=== PATIENT | male | born 1945 | race Caucasian/White ===

== ENCOUNTER → 2018-01-01 | Outpatient (CLI) | payer MEDICARE, OTHER ==
--- NOTE | 2018-01-01 09:12 | CT ---
EXAMINATION TYPE: CT sinus wo con DATE OF EXAM: 01/01/2018 COMPARISON: NONE HISTORY: Chronic sinusitis CT DLP: 602 mGycm. Automated Exposure Control for Dose Reduction was Utilized. TECHNIQUE: CT scan of the sinuses is performed without contrast, axial images are obtained, coronal r eformatted images are also reviewed. FINDINGS: There is minimal mucosal thickening within the ethmoid sinuses. The frontal sinuses, maxill carmela sinuses, sphenoid sinuses, and mastoid air cells are well aerated. There is no middle ear cavity fluid identified. External auditory canals are patent. No mason bullosa are seen. The nasal septum r emains overall midline. Maxillary spine and nasal bone are intact. The ostiomeatal complexes are wide ly patent. There are small nonocclusive Eli cells measuring 2 to 3 mm on the right and 2 on the le ft measuring 8 mm and 2 mm. No mucosal hypertrophy of the nasal turbinates is seen. Extraocular muscles and orbits are symmetric. Lenses are surgically absent. No focal soft tissue swel ling is seen. Visualized parotid glands demonstrate mild atrophy that are symmetric. Osseous structur es are grossly intact other than a chronic fracture deformity of the left lamina papyracea. Visualize d portions of the intracranial parenchyma are limited given technique but do demonstrate symmetric ag e-related volume loss. IMPRESSION: 1. Scant mucosal thickening within the ethmoid sinuses. Remaining paranasal sinuses are clear. Ostiom eatal complexes are patent. 2. Small nonocclusive bilateral Eli cells. 3. No mason bullosa, no nasal septal deviation, no mucosal hypertrophy of the nasal turbinates, no m astoid air cell opacification, and no middle ear cavity fluid.
== END ==
LOC: RADCTMAIN 08:37
PROVIDERS: ATTEND Otolaryngology
DX: J32.2 Chronic ethmoidal sinusitis (principal)
CPT/HCPCS: 70486

== ENCOUNTER → 2020-05-03 | Outpatient (CLI) | payer MEDICARE, OTHER ==
--- NOTE | 2020-05-03 11:44 | FL ---
EXAMINATION TYPE: FL sniff test without CXR DATE OF EXAM: 05/03/2020 Comparison: 04/19/2020 radiograph Clinical History: 74-year-old male R06.09 DYSPNEA TECHNIQUE: Real-time fluoroscopy along the anterior lower chest during quiet breathing, deep breathin g, and sniffing maneuver. Total fluoroscopy time: 1 minute 21 seconds. Total images: None. Real-time fluoroscopy was utilized. Findings: There is some exam limitations as the patient had difficulty performing the sniffing maneuver. The pa tiejohnathan reports that one nasal passage collapses during sniffing. Slight asymmetric elevation of the ri ght hemidiaphragm is again noted. However, there is overall symmetric excursion of the hemidiaphragms from side to side. The patient's limited sniffing maneuver shows no clear paradoxical motion. Impression: The patient's limited sniffing maneuver (the patient reports a collapsing nasal passage upon sniffing )shows no convincing evidence for diaphragmatic paralysis.
--- NOTE | 2020-05-03 12:41 | ECHOF ---
Referral Reason:R06.09 dyspnea on exertion MEASUREMENTS -------- HEIGHT: 185.4 cm WEIGHT: 139.7 kg BP: RVIDd: 3.7 cm (< 3.3) IVSd: 1.8 cm (0.6 - 1.1) LVIDd: 4.1 cm (3.9 - 5.3) LVPWd: 1.7 cm (0.6 - 1.1) IVSs: 2.0 cm LVIDs: 3.1 cm LVPWs: 1.7 cm LAESV Index (A-L): 23.09 ml/m Ao Diam: 3.7 cm (2.0 - 3.7) AV Cusp: 2.4 cm (1.5 - 2.6) MV EXCURSION: 19.135 mm (> 18.000) MV EF SLOPE: 123 mm/s (70 - 150) EPSS: 0.6 cm MV E Jaime: 0.66 m/s MV A Jaime: 1.08 m/s MV E/A Ratio: 0.61 AR PHT: 623 ms RAP: 5.00 mmHg RVSP: 16.47 mmHg FINDINGS -------- Sinus rhythm. This was a technically adequate study. The left ventricular size is normal. There is moderate concentric left ventricular hypertrophy. O verall left ventricular systolic function is normal with, an EF between 55 - 60 %. The right ventricle is mildly enlarged. Normal LA size by volume 22+/-6 ml/m2. The right atrial size is normal. Interatrial and interventricular septum intact. There is mild aortic valve sclerosis. Trace to mild aortic regurgitation. There is no evidence of aortic stenosis. Mild mitral annular calcification present. Mild mitral regurgitation is present. Mild tricuspid regurgitation present. There is no evidence of pulmonary hypertension. The right v entricular systolic pressure, as measured by Doppler, is 16.47mmHg. There is no pulmonic regurgitation present. The aortic root size is normal. IVC Not well visulized. There is no pericardial effusion. CONCLUSIONS -------- 1. There is moderate concentric left ventricular hypertrophy. 2. Overall left ventricular systolic function is normal with, an EF between 55 - 60 %. 3. The right ventricle is mildly enlarged. 4. Normal LA size by volume 22+/-6 ml/m2. 5. There is mild aortic valve sclerosis. 6. Trace to mild aortic regurgitation. 7. Mild mitral annular calcification present. 8. Mild mitral regurgitation is present. 9. Mild tricuspid regurgitation present. FLORAL DESIGNER: Guerline Alonso RDCS
== END | disposition home or self-care (01) ==
LOC: RADUSWWP 09:54
PROVIDERS: ATTEND Internal Medicine
DX: I08.3 Combined rheumatic disorders of mitral, aortic and tricuspid valves (principal); R06.09 Other forms of dyspnea
CPT/HCPCS: 76000; 93306

== ENCOUNTER 2021-09-23 10:10 | Day surgery (SDC) | payer MEDICARE, OTHER ==
[2021-09-22 12:06] VITALS: BMI 38.0
[2021-09-23] MEDS ORDERED: LACTATED RINGERS 1,000 ML IV SCH (10:20)
[2021-09-23 10:36] VITALS: RESP 20; TEMP 97.5
[2021-09-23] MEDS ORDERED: PROPOFOL 10 MG/ML 20 ML VIAL IV ONE (10:57)
[2021-09-23] MEDS ORDERED: LIDOCAINE 1% INJ 10MG/ML (20 ML MDV) ONE (10:57)
--- NOTE | 2021-09-23 11:10 | P.PCN ---
Date of Procedure: 09/23/21 Procedure(s) Performed: BRIEF HISTORY: Patient is a 76-year-old, pleasant, male scheduled for an upper endoscopy as a part of evaluation of epigastric pain, early satiety for the last several years duration. His symptoms lately have been progressively getting worse. He has history of gastric lap band surgery approximately 12 years ago and because of the persistent symptoms this was removed about 4 years ago. He lost 30 pounds in the last 6 months.. PROCEDURE PERFORMED: Esophagogastroduodenoscopy with biopsy PREOPERATIVE DIAGNOSIS: Persistent epigastric pain and early satiety. IV sedation per anesthesia. PROCEDURE: After informed consent was obtained, the patient was brought into the endoscopy unit. IV sedation was administered by Anesthesia under continuous monitoring. Initially the Olympus GIF-140 video endoscope was inserted into the mouth. Esophagus intubated without any difficulty. It was gradually advanced into the stomach and duodenum and carefully examined. The bulb and the second part of the duodenum appeared normal. Abscesses were done from the duodenum to rule out celiac disease. The scope at this time was withdrawn to the stomach, adequately insufflated with air, and upon careful examination, mucosa of the antrum, body, had diffuse gastritis and biopsies were done from this area. The cardia and the fundus appeared normal. The scope was then withdrawn into the esophagus. The GE junction was located at 42 cm from the incisors. In the distal esophagus a there was circumferential erythema the GE junction consistent with LA grade a reflux esophagitis. There were no erosions or ulcerations seen. Rest of esophagus appeared normal and the patient tolerated the procedure well. IMPRESSION: 1. Mild diffuse gastritis. 2. LA grade a reflux esophagitis. RECOMMENDATIONS: The findings of this examination were discussed with the patient as well as his family. He was advised to follow with the biopsy results. In the meantime continue Prilosec [address] of abdomen and pelvis results. He will be seen in office in 2 weeks..
[2021-09-23 11:26] VITALS: BP 132/81; PULSE 69
== END 2021-09-23 11:40 | disposition home or self-care (01) ==
LOC: ORWHC2ENDO 10:10
PROVIDERS: ATTEND Internal Medicine Gastroenterology
DX: K29.60 Other gastritis without bleeding (principal); K21.00 Gastro-esophageal reflux disease with esophagitis, without bleeding; I10 Essential (primary) hypertension; E07.9 Disorder of thyroid, unspecified; E66.01 Morbid (severe) obesity due to excess calories
CPT/HCPCS: 43239; 88305; J2001; J2704

== ENCOUNTER → 2021-09-28 | Outpatient (CLI) | payer MEDICARE, OTHER ==
--- NOTE | 2021-09-28 21:40 | CT ---
EXAMINATION TYPE: CT abdomen pelvis w con DATE OF EXAM: 09/28/2021 COMPARISON: None available HISTORY: Abnormal weight loss CT DLP: 3200.7 mGycm Automated exposure control for dose reduction was used. TECHNIQUE: Helical acquisition of images was performed from the lung bases through the pelvis. CONTRAST: Performed with Oral Contrast and with IV Contrast, patient injected with 100 mL of Isovue 300. FINDINGS: LUNG BASES: 11 mm right lung base calcified granuloma. Coronary arterial atherosclerotic calcificatio ns. LIVER/GB: No significant abnormality is appreciated. PANCREAS: Severe fatty infiltration of the pancreas. SPLEEN: No significant abnormality is seen. ADRENALS: No significant abnormality is seen. KIDNEYS: No significant abnormality is seen. FREE AIR: No free air is visualized. RETROPERITONEAL ADENOPATHY: None visualized REPRODUCTIVE ORGANS: Slightly enlarged prostate, please correlate with PSA level. URINARY BLADDER: No significant abnormality is seen. PELVIC ADENOPATHY: None visualized. OSSEOUS STRUCTURES: Degenerative changes of the lower thoracic and lower lumbar spine with facet ost eoarthropathy. Degenerative changes of the left hip joint. No aggressive bone lesion. BOWEL: Surgical clips are seen at the gastroesophageal junction. Unremarkable stomach otherwise. Sec ond part of the duodenum diverticulum measuring up to 3.9 cm. Unremarkable remainder of the duodenum and small bowel. Scattered uncomplicated colonic diverticulosis. No gross colonic mass however a smal l lesion cannot be excluded. OTHER: Scattered arterial atherosclerotic calcifications. Sizable ascites. IMPRESSION: No definite suspicious lesion or acute abnormality seen in the abdomen or the pelvis. Incidental find ings as described above.
== END | disposition home or self-care (01) ==
LOC: RADCTMAIN 14:59
PROVIDERS: ATTEND Internal Medicine Gastroenterology
DX: R63.4 Abnormal weight loss (principal)
CPT/HCPCS: 82565; 84520; 74177; 36415; Q9967

== ENCOUNTER 2024-01-14 05:23 | Inpatient (IN) | payer MEDICARE, OTHER ==
--- NOTE | 2024-01-14 05:35 | ED ---
Weakness HPI - General Chief complaint: Weakness Stated complaint: Weakness Time Seen by Provider: 01/14/24 05:32 Source: EMS, RN notes reviewed, old records reviewed Mode of arrival: EMS Limitations: no limitations - History of Present Illness Initial comments: This is an 78-year-old male to the ER for evaluation of significant and persistent nausea vomiting and diarrhea. Patient feels lightheaded dizzy and weak, fatigued with low heart rate concern for thyroid issue. MD Complaint: generalized weakness -: days(s) Location: generalized Severity: moderate Severity scale (1-10): 7 Improves with: none Worsens with: none Context: recent illness, history of similar Associated Symptoms: denies other symptoms - Related Data Home Medications Medication Instructions Recorded Confirmed Cholecalciferol [Vitamin D3 (125 125 mcg PO DAILY 09/22/21 01/14/24 Mcg = 5000 Iu)] Losartan Potassium 50 mg PO HS 09/22/21 01/14/24 Terazosin HCl 5 mg PO HS 09/22/21 01/14/24 Aspirin EC [Ecotrin Low Dose] 81 mg PO DAILY 01/14/24 01/14/24 Cyclobenzaprine [Flexeril] 10 mg PO BID PRN 01/14/24 01/14/24 Multivitamins, Thera [Multivitamin 1 tab PO DAILY 01/14/24 01/14/24 (formulary)] Omeprazole 20 mg PO DAILY 01/14/24 01/14/24 Thyroid,Pork [Water Well Driller Thyroid] 180 mg PO MOWEFR 01/14/24 01/14/24 Thyroid,Pork [Water Well Driller Thyroid] 270 mg PO SUTUTHSA 01/14/24 01/14/24 hydroCHLOROthiazide [Hydrodiuril] 25 mg PO DAILY 01/14/24 01/14/24 Previous Rx's Medication Instructions Recorded metroNIDAZOLE 250 mg PO TID #21 tablet 01/15/24 polyethylene glycoL 3350 [Miralax] 17 gm PO AC-LUNCH #527 gm 01/15/24 Allergies Allergy/AdvReac Type Severity Reaction Status Date / Time No Known Allergies Allergy Verified 01/14/24 07:34 Review of Systems ROS Statement: Those systems with pertinent positive or pertinent negative responses have been documented in the HPI. ROS Other: All systems not noted in ROS Statement are negative. Past Medical History Past Medical History: Hearing Disorder / Deafness, Hypertension, Osteoarthritis (OA), Thyroid Disorder Additional Past Medical History / Comment(s): unexplained 30 lb approx wt loss over last 6 mos History of Any Multi-Drug Resistant Organisms: None Reported Past Surgical History: Bariatric Surgery Additional Past Surgical History / Comment(s): LAP BAND SURGERY, LAP BAND REMOVED, abilio cataracts,rt meniscus Past Anesthesia/Blood Transfusion Reactions: No Reported Reaction Past Psychological History: No Psychological Hx Reported Smoking Status: Former smoker Past Alcohol Use History: None Reported Past Drug Use History: None Reported - Past Family History Mother Family Medical History: Cancer Father Family Medical History: Cancer General Exam General appearance: alert, in no apparent distress Head exam: Present: atraumatic, normocephalic, normal inspection Eye exam: Present: normal appearance, PERRL, EOMI. Absent: scleral icterus, conjunctival injection, periorbital swelling ENT exam: Present: normal exam, mucous membranes moist Neck exam: Present: normal inspection. Absent: tenderness, meningismus, lympha denopathy Respiratory exam: Present: normal lung sounds bilaterally. Absent: respiratory distress, wheezes, rales, rhonchi, stridor Cardiovascular Exam: Present: regular rate, normal rhythm, normal heart sounds. Absent: systolic murmur, diastolic murmur, rubs, gallop, clicks GI/Abdominal exam: Present: soft, normal bowel sounds. Absent: distended, tenderness, guarding, rebound, rigid Extremities exam: Present: normal inspection, full ROM, normal capillary refill. Absent: tenderness, pedal edema, joint swelling, calf tenderness Back exam: Present: normal inspection Neurological exam: Present: alert, oriented X3, CN II-XII intact Psychiatric exam: Present: normal affect, normal mood Skin exam: Present: warm, dry, intact, normal color. Absent: rash Course Vital Signs 01/14/24 01/14/24 01/14/24 05:24 06:15 10:45 Temperature 97.5 F L 97.9 F Pulse Rate 58 L 48 L 78 Respiratory 17 16 17 Rate Blood Pressure 145/77 147/58 158/69 O2 Sat by Pulse 96 98 95 Oximetry 01/14/24 01/14/24 01/14/24 12:20 17:00 18:51 Temperature 97.9 F 98.6 F 98.1 F Pulse Rate 80 67 74 Respiratory 18 17 Rate Blood Pressure 131/55 163/75 160/64 O2 Sat by Pulse 95 96 Oximetry 01/14/24 01/14/24 01/15/24 19:30 21:00 00:00 Temperature 98.1 F 98.2 F Pulse Rate 74 66 62 Respiratory 18 20 18 Rate Blood Pressure 160/69 162/66 154/68 O2 Sat by Pulse 96 95 97 Oximetry 01/15/24 01/15/24 01/15/24 02:00 03:00 05:00 Temperature 98.3 F Pulse Rate 63 85 66 Respiratory 18 18 18 Rate Blood Pressure 152/63 147/69 172/71 O2 Sat by Pulse 97 96 96 Oximetry 01/15/24 01/15/24 01/15/24 06:00 08:23 08:53 Temperature 98.8 F Pulse Rate 75 64 Respiratory 18 18 Rate Blood Pressure 156/69 O2 Sat by Pulse 97 95 96 Oximetry 01/15/24 08:55 Temperature Pulse Rate 65 Respiratory Rate Blood Pressure 164/80 O2 Sat by Pulse 96 Oximetry - Reevaluation(s) Reevaluation #1: 01/14/24 06:23 Medical records reviewed Reevaluation #2: 01/14/24 06:28 Patient has no change in heart rate or symptoms here in the ER Reevaluation #3: 01/14/24 06:28 Patient informed of results and questions answered Reevaluation #4: Was pt. sent in by a medical professional or institution (, PA, [facility], urgent care, hospital, or penitentiary...) When possible be specific @ -no Did you speak to anyone other than the patient for history (EMS, parent, family, police, friend...)? What history was obtained from this source @ -no Did you review nursing and triage notes (agree or disagree)? Why? @ -agree Are old charts reviewed (outside hosp., previous admission, EMS record, old EKG, old radiological studies, urgent care reports/EKG's, penitentiary records)? Report findings @ -yes Differential Diagnosis (chest pain, altered mental status, abdominal pain women, abdominal pain men, vaginal bleeding, weakness, fever, dyspnea, syncope, headache, dizziness, GI bleed, back pain, seizure, CVA, palpatations, mental health, musculoskeletal)? @ -prior EKG interpreted by me (3pts min.). @ -yes X-rays interpreted by me (1pt min.). @ -no CT interpreted by me (1pt min.). @ -no U/S interpreted by me (1pt. min.). @ -no What testing was considered but not performed or refused? (CT, X-rays, U/S, labs)? Why? @ -none What meds were considered but not given or refused? Why? @ -none Did you discuss the management of the patient with other professionals (professionals i.e. , PA, [employer], lab, RT, psych nurse, social media community manager, adjunct psychology faculty member, teacher, administrative officer, piano case and bench assembler)? Give summary @ -no Was smoking cessation discussed for >3mins.? @ -no Was critical care preformed (if so, how long)? @ -yes31 Were there social determinants of health that impacted care today? How? (Homelessness, low income, unemployed, alcoholism, drug addiction, transportation, low edu. Level, literacy, decrease access to med. care, longterm, rehab)? @ -none Was there de-escalation of care discussed even if they declined (Discuss DNR or withdrawal of care, Hospice)? DNR status @ -no What co-morbidities impacted this encounter? (DM, HTN, Smoking, COPD, CAD, Cancer, CVA, ARF, Chemo, Hep., AIDS, mental health diagnosis, sleep apnea, morbid obesity)? @ -none Was patient admitted / discharged? Hospital course, mention meds given and route, prescriptions, significant lab abnormalities, going to OR and other pertinent info. @ - 78 male to the ER for evaluation of nausea vomiting diarrhea bradycardia. Patient admitted for symptomatic bradycardia here in the emergency department Admitted Undiagnosed new problem with uncertain prognosis? @ -no Drug Therapy requiring intensive monitoring for toxicity (Heparin, Nitro, Insulin, Cardizem)? @ -no Were any procedures done? @ -no Diagnosis/symptom? @ -Symptomatic bradycardia Acute, or Chronic, or Acute on Chronic? @ -Acute Uncomplicated (without systemic symptoms) or Complicated (systemic symptoms)? @ -Complicated Side effects of treatment? @ -no Exacerbation, Progression, or Severe Exacerbation? @ -exacerbation Poses a threat to life or bodily function? How? (Chest pain, [place], [place], pneumonia, PE, COPD, DKA, ARF, appy, cholecystitis, CVA, Diverticulitis, Homicidal, Suicidal, threat to staff... and all critical care pts) @ -yes extremes of age Reevaluation #5: Differential Weakness: Hypoglycemia, shock, sepsis, hyponatremia, anemia, infection, [place], ETOH, adverse medicine reaction, overdose, stroke, this is not meant to be an all-inclusive list. - Consultations Consultation #1: Spoke with Dr. Gao who can admit this patient EKG Findings - EKG Comments: EKG Findings:: EKG is sinus 46 ME 190 QRS 155 QTc 466 - EKG Results: EKG: interpreted by [facility] Medical Decision Making - Medical Decision Making 78 male to the ER for evaluation of nausea vomiting diarrhea bradycardia. Patient admitted for symptomatic bradycardia here in the emergency department - Lab Data Result diagrams: 01/15/24 06:41 01/15/24 06:41 Lab Results 01/14/24 01/14/24 01/14/24 Range/Units 05:20 05:20 05:20 WBC 8.3 (3.8-10.6) k/uL RBC 4.70 (4.30-5.90) m/uL Hgb 13.8 (13.0-17.5) gm/dL Hct 41.6 (39.0-53.0) % MCV 88.6 (80.0-100.0) fL MCH 29.3 (25.0-35.0) pg MCHC 33.1 (31.0-37.0) g/dL RDW 12.8 (11.5-15.5) % Plt Count 182 (150-450) k/uL MPV 7.2 Neutrophils % 69 % Lymphocytes % 20 % Monocytes % 6 % Eosinophils % 2 % Basophils % 0 % Neutrophils # 5.8 (1.3-7.7) k/uL Lymphocytes # 1.6 (1.0-4.8) k/uL Monocytes # 0.5 (0-1.0) k/uL Eosinophils # 0.2 (0-0.7) k/uL Basophils # 0.0 (0-0.2) k/uL PT 11.1 (10.0-12.5) sec INR 1.0 (<1.2) APTT 23.2 (22.0-30.0) sec Sodium 132 L (137-145) mmol/L Potassium 3.6 (3.5-5.1) mmol/L Chloride 101 (98-107) mmol/L Carbon Dioxide 22 (22-30) mmol/L Anion Gap 9 mmol/L BUN 22 H (9-20) mg/dL Creatinine 1.22 (0.66-1.25) mg/dL Est GFR (CKD-EPI)AfAm 65 (>60 ml/min/1.73 sqM) Est GFR (CKD-EPI)NonAf 56 (>60 ml/min/1.73 sqM) Glucose 123 H (74-99) mg/dL Plasma Lactic Acid Beni (0.7-2.0) mmol/L Calcium 8.6 (8.4-10.2) mg/dL Magnesium 2.1 (1.6-2.3) mg/dL Total Bilirubin 0.8 (0.2-1.3) mg/dL AST 30 (17-59) U/L ALT 16 (4-49) U/L Alkaline Phosphatase 67 (38-126) U/L Troponin I (0.000-0.034) ng/mL Total Protein 6.1 L (6.3-8.2) g/dL Albumin 3.7 (3.5-5.0) g/dL TSH 11.100 H (0.465-4.680) mIU/L Free T4 1.01 (0.78-2.19) ng/dL 01/14/24 01/14/24 Range/Units 05:20 05:20 WBC (3.8-10.6) k/uL RBC (4.30-5.90) m/uL Hgb (13.0-17.5) gm/dL Hct (39.0-53.0) % MCV (80.0-100.0) fL MCH (25.0-35.0) pg MCHC (31.0-37.0) g/dL RDW (11.5-15.5) % Plt Count (150-450) k/uL MPV Neutrophils % % Lymphocytes % % Monocytes % % Eosinophils % % Basophils % % Neutrophils # (1.3-7.7) k/uL Lymphocytes # (1.0-4.8) k/uL Monocytes # (0-1.0) k/uL Eosinophils # (0-0.7) k/uL Basophils # (0-0.2) k/uL PT (10.0-12.5) sec INR (<1.2) APTT (22.0-30.0) sec Sodium (137-145) mmol/L Potassium (3.5-5.1) mmol/L Chloride (98-107) mmol/L Carbon Dioxide (22-30) mmol/L Anion Gap mmol/L BUN (9-20) mg/dL Creatinine (0.66-1.25) mg/dL Est GFR (CKD-EPI)AfAm (>60 ml/min/1.73 sqM) Est GFR (CKD-EPI)NonAf (>60 ml/min/1.73 sqM) Glucose (74-99) mg/dL Plasma Lactic Acid Beni 1.1 (0.7-2.0) mmol/L Calcium (8.4-10.2) mg/dL Magnesium (1.6-2.3) mg/dL Total Bilirubin (0.2-1.3) mg/dL AST (17-59) U/L ALT (4-49) U/L Alkaline Phosphatase (38-126) U/L Troponin I <0.012 (0.000-0.034) ng/mL Total Protein (6.3-8.2) g/dL Albumin (3.5-5.0) g/dL TSH (0.465-4.680) mIU/L Free T4 (0.78-2.19) ng/dL - EKG Data -: EKG Interpreted by Me Critical Care Time Critical Care Time: Yes Total Critical Care Time: 31 Disposition Clinical Impression: Dehydration, Hypokalemia, Weakness, Gastroenteritis, Bradycardia Disposition: ADMITTED IP TO THIS HOSP Condition: Fair Is patient prescribed a controlled substance at d/c from ED?: No Time of Disposition: 06:30
[2024-01-14 05:40] LABS: Basophils % (A) 0 %; Eosinophils # (A) 0.2 k/uL (0-0.7); Eosinophils % (A) 2 %; HCT 41.6 % (39.0-53.0); HGB 13.8 gm/dL (13.0-17.5); Lymphocytes # (A) 1.6 k/uL (1.0-4.8); Lymphocytes % (A) 20 %; MCH 29.3 pg (25.0-35.0); MCHC 33.1 g/dL (31.0-37.0); MCV 88.6 fL (80.0-100.0); Mean Platelet Volume 7.2; Monocytes # (A) 0.5 k/uL (0-1.0); Monocytes % (A) 6 %; Neutrophils # (A) 5.8 k/uL (1.3-7.7); Neutrophils % (A) 69 %; Platelet Count 182 k/uL (150-450); RDW 12.8 % (11.5-15.5); WBC 8.3 k/uL (3.8-10.6)
[2024-01-14] MEDS: SODIUM CHLORIDE 0.9% 1,000 ML IV STA (05:45)
[2024-01-14 05:49] LABS: Partial Thromboplastin Time 23.2 sec (22.0-30.0); Prothrombin Time 11.1 sec (10.0-12.5)
[2024-01-14 06:21] LABS: ALT 16 U/L (4-49); AST 30 U/L (17-59); African American GFR (CKD) 65 (>60 ml/min/1.73 sqM); Albumin 3.7 g/dL (3.5-5.0); Alkaline Phosphatase 67 U/L (38-126); Anion Gap 9 mmol/L; Blood Urea Nitrogen 22 mg/dL (9-20); Calcium 8.6 mg/dL (8.4-10.2); Carbon Dioxide 22 mmol/L (22-30); Chloride 101 mmol/L (98-107); Glucose 123 mg/dL (74-99); Magnesium 2.1 mg/dL (1.6-2.3); Non-African American GFR(CKD) 56 (>60 ml/min/1.73 sqM); Potassium 3.6 mmol/L (3.5-5.1); Sodium 132 mmol/L (137-145); Total Bilirubin 0.8 mg/dL (0.2-1.3); Total Protein 6.1 g/dL (6.3-8.2)
[2024-01-14] MEDS ORDERED: NALOXONE 0.4 MG/ML 1 ML VIAL IV PRN (06:26)
[2024-01-14] MEDS ORDERED: ONDANSETRON 4 MG/2 ML VIAL IVP PRN (06:26)
[2024-01-14] MEDS: SODIUM CHLORIDE 0.9% 1,000 ML IV SCH (07:38)
[2024-01-14] MEDS ORDERED: CYCLOBENZAPRINE 10 MG TAB PO PRN (07:52)
[2024-01-14] MEDS ORDERED: IOPAMIDOL CONTRAST (ORAL USE) VIAL PO PRN (07:54)
[2024-01-14] MEDS ORDERED: PANTOPRAZOLE 40 MG/10 ML VIAL IV SCH (09:00)
[2024-01-14 09:08] LABS: T4, Free (Free Thyroxine) 1.01 ng/dL (0.78-2.19)
--- NOTE | 2024-01-14 09:17 | CT ---
EXAMINATION TYPE: CT abdomen pelvis wo/w con DATE OF EXAM: 01/14/2024 COMPARISON: 09/28/2021 HISTORY: abdominal pain, nausea and diarrhea CT DLP: 3492.2 mGycm CONTRAST: CT scan of the abdomen and pelvis is performed without Oral Contrast and without and with IV Contrast , patient injected with 80ml mL of Isovue 300. FINDINGS: LUNG BASES-: No visible nodule. No infiltrate. Granuloma lateral right lower lobe. LIVER/GB: No calcified gallstones. No space occupying hepatic lesion. Biliary tree is of normal ca liber. PANCREAS: No inflammation. No distinct mass. SPLEEN: No splenic enlargement. No lesion seen. ADRENALS: No nodule. No thickening. KIDNEYS/BLADDER: No hydronephrosis. No nephrolithiasis. No distinct renal mass. Urinary bladder g rossly unremarkable. BOWEL: Normal appendix. Wall thickening ascending colon and to a lesser extent the descending colon a nd sigmoid colon could reflect multifocal infectious colitis. Additional possibilities include inflam matory and ischemic causes. Correlate clinically. Small bowel is of normal caliber. No evidence for a bscess, inflammatory process or free air. GENITAL ORGANS: No gross abnormality. LYMPH NODES: No greater than 1cm abdominal or pelvic lymph nodes are appreciated. AORTA: No significant abnormality. OSSEOUS STRUCTURES: Severe degenerative disc disease lower lumbar spine. OTHER: No significant additional abnormality is seen. IMPRESSION: 1. Wall thickening ascending colon and to a lesser extent the descending colon and sigmoid colon coul d reflect multifocal infectious colitis. Additional possibilities include inflammatory and ischemic c auses. Correlate clinically.
[2024-01-14] MEDS: metroNIDAZOLE-NS PMX 500 MG in SALINE 1 100ML.BAG IVPB SCH (09:40)
[2024-01-14] MEDS: CHOLECALCIFEROL 125 MCG (5000 IU) TABLET PO SCH (10:11)
[2024-01-14] MEDS: PANTOPRAZOLE 40 MG TABLET PO SCH (10:11)
[2024-01-14] MEDS: ASPIRIN 81 MG PO SCH (10:11)
[2024-01-14] MEDS: THYROID, PORK 30 MG TAB PO SCH (10:11)
[2024-01-14] MEDS: LOPERAMIDE 2 MG CAP PO SCH (10:11)
[2024-01-14 10:22] LABS: Appearance,Urine Clear (Clear); Bilirubin,Urine Negative (Negative); Blood,Urine Negative (Negative); Color,Urine Light Yellow; Glucose,Urine (UA) Negative (Negative); Ketones,Urine 2+ (Negative); Leukocyte Esterase,Urine Negative (Negative); Nitrite,Urine Negative (Negative); PH, Urine 5.5 (5.0-8.0); Protein,Urine Negative (Negative); Urobilinogen,Urine <2.0 mg/dL (<2.0)
[2024-01-14 10:42] LABS: Specific Gravity,Urine >1.050 (1.001-1.035)
--- NOTE | 2024-01-14 11:43 | P.CRDCN ---
History of Present Illness Consult date: 01/14/24 Reason for Consult (text): Bradycardia History of present illness: This is an 86-year-old male follows with cardiology out of [place] with past medical history of hypertension, slightly enlarged aorta per his , gastroesophageal reflux disease, hypothyroidism. We have been asked to evaluate the patient for bradycardia. Patient's states that patient has had diarrhea since Sunday and has been explosive. He was on the toilet and she could not get him to respond and he was clammy and then was confused and weak when he started to become alert. Patient denies having any chest pain and no shortness of breath. He has had history of edema to the lower extremities but this was resolved with hydrochlorothiazide which was recently started. Patient's states that he has chronically low blood heart rate and has been on Toprol XL for many years. Patient is seen today in the emergency center waiting for a bed on the [facility] unit. EKG: Sinus rhythm with right bundle branch block, left anterior fascicular block CT of the abdomen and pelvis with and without contrast revealed wall thickening ascending colon to the lesser extent the descending colon and sigmoid colon could reflect multifocal infectious colitis. Additional possibilities include inflammatory and ischemic causes. Laboratory studies: Hemoglobin 13.8. Potassium 3.6, BUN 22 creatinine 1.22. Magnesium 2.1. Troponin negative x 1. TSH 11.1 and free T41.01 Home cardiac medications: Aspirin 81 mg daily, hydrochlorothiazide 25 mg daily, losartan 50 mg daily at bedtime, Toprol-XL 25 mg daily, thyroid pork. Review Of Systems: At the time of my exam: CONSTITUTIONAL: Denies fever or chills. HEENT: Denies blurred vision, vision changes, or eye pain. Denies hemoptysis CARDIOVASCULAR: Denies chest pain. Denies orthopnea. Denies PND. Denies palpitations RESPIRATORY: Denies shortness of breath. GASTROINTESTINAL: Denies abdominal pain. Denies nausea or vomiting. HEMATOLOGIC: Denies bleeding disorders. GENITOURINARY: Denies any blood in urine. SKIN: Denies puritis. Denies rash. Physical examination: Gen: This is an 78-year-old male in no acute distress VS: reviewed HEENT: Head is atraumatic, normocephalic. Pupils equal, round. Sclerae is anicteric. NECK: Supple. No JVD. LUNGS: Clear to auscultation. No wheezes or rhonchi. No intercostal retract ions. HEART: Regular rate and rhythm. No murmur. ABDOMEN: Soft No tenderness. EXTREMITIES: No pedal edema. No calf tenderness. NEUROLOGICAL: Patient is awake, alert and oriented x3. Assessment: Bradycardia Diarrhea Hypertension Gastroesophageal reflux disease Hypothyroidism with abnormal TSH, normal free T4 Plan: Resume patient's home cardiac medications Hold and plan to discontinue Toprol XL at discharge Further recommendations to follow based upon clinical course Thank you kindly for this consultation. Nurse practitioner note has been reviewed, I agree with documented findings and plan of care. Patient was seen and examined. Past Medical History Past Medical History: Hearing Disorder / Deafness, Hypertension, Osteoarthritis (OA), Thyroid Disorder Additional Past Medical History / Comment(s): unexplained 30 lb approx wt loss over last 6 mos History of Any Multi-Drug Resistant Organisms: None Reported Past Surgical History: Bariatric Surgery Additional Past Surgical History / Comment(s): LAP BAND SURGERY, LAP BAND REMOVED, abilio cataracts,rt meniscus Past Anesthesia/Blood Transfusion Reactions: No Reported Reaction Past Psychological History: No Psychological Hx Reported Smoking Status: Former smoker Past Alcohol Use History: None Reported Past Drug Use History: None Reported - Past Family History Mother Family Medical History: Cancer Father Family Medical History: Cancer Medications and Allergies Home Medications Medication Instructions Recorded Confirmed Type Cholecalciferol [Vitamin D3 (125 125 mcg PO DAILY 09/22/21 01/14/24 History Mcg = 5000 Iu)] Losartan Potassium 50 mg PO HS 09/22/21 01/14/24 History Metoprolol Succinate (ER) [Toprol 25 mg PO DAILY 09/22/21 01/14/24 History Xl] Terazosin HCl 5 mg PO HS 09/22/21 01/14/24 History Aspirin EC [Ecotrin Low Dose] 81 mg PO DAILY 01/14/24 01/14/24 History Cyclobenzaprine [Flexeril] 10 mg PO BID PRN 01/14/24 01/14/24 History Multivitamins, Thera [Multivitamin 1 tab PO DAILY 01/14/24 01/14/24 History (formulary)] Omeprazole 20 mg PO DAILY 01/14/24 01/14/24 History Thyroid,Pork [Merchandising Lead Thyroid] 180 mg PO MOWEFR 01/14/24 01/14/24 History Thyroid,Pork [Merchandising Lead Thyroid] 270 mg PO SUTUTHSA 01/14/24 01/14/24 History hydroCHLOROthiazide [Hydrodiuril] 25 mg PO DAILY 01/14/24 01/14/24 History Allergies Allergy/AdvReac Type Severity Reaction Status Date / Time No Known Allergies Allergy Verified 01/14/24 07:34 Physical Exam Vitals: Vital Signs Temp Pulse Resp BP Pulse Ox 01/14/24 06:15 48 L 16 147/58 98 01/14/24 05:24 97.5 F L 58 L 17 145/77 96 Intake and Output 01/13/24 01/14/24 01/14/24 22:59 06:59 14:59 Other: Weight 113.398 kg Results 01/14/24 05:20 01/14/24 05:20 Cardiac Enzymes 01/14/24 01/14/24 Range/Units 05:20 05:20 AST 30 (17-59) U/L Troponin I <0.012 (0.000-0.034) ng/mL Coagulation 01/14/24 Range/Units 05:20 PT 11.1 (10.0-12.5) sec APTT 23.2 (22.0-30.0) sec CBC 01/14/24 Range/Units 05:20 WBC 8.3 (3.8-10.6) k/uL RBC 4.70 (4.30-5.90) m/uL Hgb 13.8 (13.0-17.5) gm/dL Hct 41.6 (39.0-53.0) % Plt Count 182 (150-450) k/uL Comprehensive Metabolic Panel 01/14/24 Range/Units 05:20 Sodium 132 L (137-145) mmol/L Potassium 3.6 (3.5-5.1) mmol/L Chloride 101 (98-107) mmol/L Carbon Dioxide 22 (22-30) mmol/L BUN 22 H (9-20) mg/dL Creatinine 1.22 (0.66-1.25) mg/dL Glucose 123 H (74-99) mg/dL Calcium 8.6 (8.4-10.2) mg/dL AST 30 (17-59) U/L ALT 16 (4-49) U/L Alkaline Phosphatase 67 (38-126) U/L Total Protein 6.1 L (6.3-8.2) g/dL Albumin 3.7 (3.5-5.0) g/dL Current Medications Generic Name Dose Route Start Last Admin Trade Name Freq PRN Reason Stop Dose Admin Aspirin 81 mg 01/14/24 09:00 Aspirin 81 Mg PO DAILY [facility] Cholecalciferol 125 mcg 01/14/24 09:00 Cholecalciferol 125 Mcg (5000 Iu) Tablet PO DAILY [facility] Cyclobenzaprine HCl 10 mg 01/14/24 07:52 Cyclobenzaprine 10 Mg Tab PO BID PRN Muscle Spasm Doxazosin Mesylate 4 mg 01/14/24 21:00 Doxazosin 4 Mg Tab PO HS [facility] Sodium Chloride 1,000 mls @ 75 mls/hr 01/14/24 06:30 01/14/24 07:38 Saline 0.9% IV 75 mls/hr .[id number] [facility] Administration Metronidazole 500 mg/ IV 100 mls @ 100 mls/hr 01/14/24 08:00 Solution IVPB Q6HR [facility] Protocol Iopamidol 30 ml 01/14/24 07:54 Iopamidol Contrast (Oral Use) Vial PO 01/15/24 07:[address] Scan Loperamide HCl 2 mg 01/14/24 09:00 Loperamide 2 Mg Cap PO QID [facility] Losartan Potassium 50 mg 01/14/24 21:00 Losartan 50 Mg Tab PO HS [facility] Naloxone HCl 0.2 mg 01/14/24 06:26 Naloxone 0.4 Mg/Ml 1 Ml Vial IV Q2M PRN Opioid Reversal Ondansetron HCl 4 mg 01/14/24 06:26 Ondansetron 4 Mg/2 Ml Vial IVP Q8HR PRN Nausea And Vomiting Pantoprazole Sodium 40 mg 01/14/24 09:00 Pantoprazole 40 Mg/10 Ml Vial IV DAILY [facility] Pantoprazole Sodium 40 mg 01/14/24 09:00 Pantoprazole 40 Mg Tablet PO DAILY [facility] Thyroid 180 mg 01/14/24 08:00 Thyroid, Pork 30 Mg Tab PO [email or web address] [facility] Thyroid 270 mg 01/15/24 06:30 Thyroid, Pork 30 Mg Tab PO [id number] [facility] Intake and Output 01/13/24 01/14/24 01/14/24 22:59 06:59 14:59 Other: Weight 113.398 kg 01/14/24 05:20 01/14/24 05:20
--- NOTE | 2024-01-14 12:45 | XR ---
EXAMINATION TYPE: XR chest 2V DATE OF EXAM: 01/14/2024 12:09 PM CLINICAL INDICATION:Male, 78 years old with history of marvel; [facility] COMPARISON: Chest radiographs from 10/29/2013 TECHNIQUE: XR chest 2V Frontal and lateral views of the chest. FINDINGS: Lungs/Pleura: There is no evidence of pleural effusion, focal consolidation, or pneumothorax. Pulmonary vascularity: Unremarkable. Heart/mediastinum: Cardiomediastinal silhouette is unremarkable. Musculoskeletal: No acute osseous pathology. IMPRESSION: No acute cardiopulmonary disease/process.
[2024-01-14] MEDS: LOSARTAN 50 MG TAB PO SCH (21:05)
[2024-01-14] MEDS: DOXAZOSIN 4 MG TAB PO SCH (21:05)
--- NOTE | 2024-01-14 23:14 | P.HPIM ---
History of Present Illness H&P Date: 01/14/24 HISTORY OF PRESENT ILLNESS: 78-year-old PATIENT with active medical history of hypertension, GERD, osteoarthritis, hypothyroidism, who had previous history of bariatric surgery with lap band and ended up removing the Lap-Band in the past. Has seen a silica mixer operator. Hospital on more regular basis and up-to-date on testing. 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 Thyroid TSH was 11.1 Free T4 of 1.01 normal albumin level, UA was negative consider further order and end up coming back to be negative. As he was observed in the ER and still pending study found to have significant bradycardia with pulse rate running in the 40s and early 50s only patient is still mildly symptomatic normally he runs around 80 bpm. Also finding with the blood pressure being well-controlled pulse remained well-controlled this point. CT of the abdomen eventually was done and showed wall thickening of the asce nding colon and to a lesser extent of the descending colon and sigmoid wall could reflect multifocal infectious colitis additional possibilities such as an fluid inflammatory and ischemic colitis correlate clinically. The patient was admitted to the hospital continue aggressive hydration, will be evaluated by cardiology continue to watch heart rate on the heart monitor and initiate at this point at least Flagyl 500 mg IV every 8 consult gastroenterology and watch the diarrhea in the next 48 hours. REVIEW OF SYSTEMS: CONSTITUTIONAL: Mildly overweight no acute respiratory distress EYES: No icterus sclerae, no conjunctivitis. EARS, NOSE, MOUTH, THROAT, and FACE: No sore throat, lymphadenopathy, carotid bruits or deformity. RESPIRATORY: No SOB cough or wheezes. CARDIOVASCULAR: No chest pain or angina positive mild bradycardia no orthopnea. GASTROINTESTINAL: Slight abdominal discomfort with nausea diarrhea no constipation no active bleed with passing a lot of mucus with diarrhea. GENITOURINARY: Negative for Hematuria or UTI, no kidney stones. Mild decrease in urine output. INTEGUMENT/BREAST: Negative for any muscular injury with mild osteoarthritis.. HEMATOLOGIC/LYMPHATIC: Negative for bleed or purpura. MUSCULOSKELTAL: Negative for Myalgia or arthralgia. NEURLOGICAL: No LOC, Sz or syncope, blurred vision dizziness or abnormality.. BEHAVIORAL/PSYCH: Negative. ENDOCRINE: Negative. PHYSICAL EXAMINATION: General Appearance: Overweight alert, cooperative, no distress, appears stated age. Neck HEENT: Supple, no lymphadenopathy, no thyroid enlargement, no carotid bruits. Slight dry mucosa Lungs: Clear to auscultation without crackles or wheezes no rhonchi, no deformity. Chest Wall: Chest wall normal expansion with deep inspiration no tenderness and no deformity was found on exam, no costochondral pain or discomfort. Heart: Regular rate and rhythm, S1, S2 normal, positive mild bradycardia with pulse rate running in the 50s. No murmur, rub or gallop. Back: Symmetric, no curvature, ROM normal, no CVA tenderness. Abdomen: Soft, distended with positive bowel sound slight discomfort in the midepigastric area and lower abdominal region area no rebound or rigidity. Extremities: Extremities normal, atraumatic, no cyanosis or edema. Pulses: 2+ and symmetric. Skin: Skin color, texture, tugor normal, no rashes or lesions. Neurologic: Alert oriented x3 cranial nerves II through XII intact, positive generalized weakness normal balance and gait. ASSESSMENT AND PLAN: _Severe abdominal pain: Possibly active acute colitis can be infectious or inflammatory colitis not clear etiology might require further study and testing in the meanwhile we will cover infectious colitis for now. _Severe diarrhea prior to rule out C. difficile, continue supportive care with hydration C. difficile culture will be done. _? Of colitis: Most likely infectious the event so far will see if we can do stool for Gram stain and culture in the meanwhile continue Flagyl and discontinue having symptoms patient will be need to refer to have colonoscopy at some point. _Severe bradycardia: With pulse rate in the 40s and 50s Patient not symptomatic DC beta-aleida completely see if it helps to speed up his pulse slightly. No need for any pacemaker currently. _Acute kidney injury with slight type II kidney disease: Continue hydration repeat kidney function. _Hypothyroidism: Patient takes natural thyroid lobe STONEWORKER thyroid to 70 mg Sunday and Sunday and 180 mg on Sunday and Sunday. Continue the same regimen medication for now. _Hypertension: Was on losartan 50 mg a day along with metoprolol succinate with his bradycardia metoprolol be held remain on terazosin 5 mg nightly as well we will titrate his losartan higher if needed. _BPH with no sign of obstruction continue terazosin watch for any retention. _Lower back pain and degenerative disc disease: Remains on Flexeril and Tylenol. _GI prophylaxis: Remain on omeprazole 20 mg a day. _DVT prophylaxis: Early mobilization and knee-high MUSHTAQ hose. CODE STATUS: Full code. Admit patient to the inpatient service for more than 2 night stay. Past Medical History Past Medical History: Hearing Disorder / Deafness, Hypertension, Osteoarthritis (OA), Thyroid Disorder Additional Past Medical History / Comment(s): unexplained 30 lb approx wt loss over last 6 mos History of Any Multi-Drug Resistant Organisms: None Reported Past Surgical History: Bariatric Surgery Additional Past Surgical History / Comment(s): LAP BAND SURGERY, LAP BAND REMOVE D, abilio cataracts,rt meniscus Past Anesthesia/Blood Transfusion Reactions: No Reported Reaction Past Psychological History: No Psychological Hx Reported Smoking Status: Former smoker Past Alcohol Use History: None Reported Past Drug Use History: None Reported - Past Family History Mother Family Medical History: Cancer Father Family Medical History: Cancer Medications and Allergies Home Medications Medication Instructions Recorded Confirmed Type Cholecalciferol [Vitamin D3 (125 125 mcg PO DAILY 09/22/21 01/14/24 History Mcg = 5000 Iu)] Losartan Potassium 50 mg PO HS 09/22/21 01/14/24 History Metoprolol Succinate (ER) [Toprol 25 mg PO DAILY 09/22/21 01/14/24 History Xl] Terazosin HCl 5 mg PO HS 09/22/21 01/14/24 History Aspirin EC [Ecotrin Low Dose] 81 mg PO DAILY 01/14/24 01/14/24 History Cyclobenzaprine [Flexeril] 10 mg PO BID PRN 01/14/24 01/14/24 History Multivitamins, Thera [Multivitamin 1 tab PO DAILY 01/14/24 01/14/24 History (formulary)] Omeprazole 20 mg PO DAILY 01/14/24 01/14/24 History Thyroid,Pork [Ledge Man Thyroid] 180 mg PO MOWEFR 01/14/24 01/14/24 History Thyroid,Pork [Ledge Man Thyroid] 270 mg PO SUTUTHSA 01/14/24 01/14/24 History hydroCHLOROthiazide [Hydrodiuril] 25 mg PO DAILY 01/14/24 01/14/24 History Allergies Allergy/AdvReac Type Severity Reaction Status Date / Time No Known Allergies Allergy Verified 01/14/24 07:34 Physical Exam Vitals: Vital Signs Temp Pulse Resp BP Pulse Ox 01/14/24 06:15 48 L 16 147/58 98 01/14/24 05:24 97.5 F L 58 L 17 145/77 96 Intake and Output 01/13/24 01/14/24 01/14/24 22:59 06:59 14:59 Other: Weight 113.398 kg Results CBC & Chem 7: 01/14/24 05:20 01/14/24 05:20 Labs: Abnormal Lab Results - Last 24 Hours (Table) 01/14/24 Range/Units 05:20 Sodium 132 L (137-145) mmol/L BUN 22 H (9-20) mg/dL Glucose 123 H (74-99) mg/dL Total Protein 6.1 L (6.3-8.2) g/dL TSH 11.100 H (0.465-4.680) mIU/L
[2024-01-15 00:01] VITALS: RESP 18
[2024-01-15] MEDS: THYROID, PORK 30 MG TAB PO SCH (07:46)
[2024-01-15 08:54] VITALS: TEMP 98.8
[2024-01-15 08:55] VITALS: BP 164/80; PULSE 65
--- NOTE | 2024-01-15 09:34 | P.PN ---
Subjective Progress Note Date: 01/15/24 Reason for Consult (text): Bradycardia History of present illness: This is an 86-year-old male follows with cardiology out of [place] with past medical history of hypertension, slightly enlarged aorta per his , gastroesophageal reflux disease, hypothyroidism. We have been asked to evaluate the patient for bradycardia. Patient's states that patient has had diarrhea since Sunday and has been explosive. He was on the toilet and she could not get him to respond and he was clammy and then was confused and weak when he started to become alert. Patient denies having any chest pain and no shortness of breath. He has had history of edema to the lower extremities but this was resolved with hydrochlorothiazide which was recently started. Patient's states that he has chronically low blood heart rate and has been on Toprol XL for many years. Patient is seen today in the emergency center waiting for a bed on the [facility] unit. EKG: Sinus rhythm with right bundle branch block, left anterior fascicular block CT of the abdomen and pelvis with and without contrast revealed wall thickening ascending colon to the lesser extent the descending colon and sigmoid colon could reflect multifocal infectious colitis. Additional possibilities include inflammatory and ischemic causes. Laboratory studies: Hemoglobin 13.8. Potassium 3.6, BUN 22 creatinine 1.22. Magnesium 2.1. Troponin negative x 1. TSH 11.1 and free T41.01 Home cardiac medications: Aspirin 81 mg daily, hydrochlorothiazide 25 mg daily, losartan 50 mg daily at bedtime, Toprol-XL 25 mg daily, thyroid pork. 01/14 Patient is seen today in follow-up. He remains in the emergency center waiting for bed on the [facility] floor, but fortunately, patient has been set up for discharge today. He states his diarrhea has resolved. He denies any abdominal pain. Heart rate has been running in the 60s and 70s, blood pressure 164/80, pulse ox 96% on room air. Physical examination: Gen: This is an 78-year-old male in no acute distress VS: reviewed LUNGS: Clear to auscultation. No wheezes or rhonchi. No intercostal retractions. HEART: Regular rate and rhythm. No murmur. EXTREMITIES: No pedal edema. No calf tenderness. NEUROLOGICAL: Patient is awake, alert and oriented x3. Assessment: Bradycardia Diarrhea Hypertension Gastroesophageal reflux disease Hypothyroidism with abnormal TSH, normal free T4 Plan: Continue patient's home cardiac medications Continue to hold and plan to discontinue Toprol XL at discharge Patient is cleared for discharge from cardiology May follow-up with his primary director of global talent in 1 week. Nurse practitioner note has been reviewed, I agree with documented findings and plan of care. Patient was seen and examined. Objective - Vital Signs Vital signs: Vital Signs Temp 98.3 F 01/15/24 05:00 Pulse 75 01/15/24 06:00 Resp 18 01/15/24 06:00 BP 156/69 01/15/24 06:00 Pulse Ox 97 01/15/24 06:00 FiO2 - Labs CBC & Chem 7: 01/14/24 05:20 01/14/24 05:20 Labs: Abnormal Lab Results - Last 24 Hours (Table) 01/14/24 Range/Units 09:51 Ur Specific [place] >1.050 H (1.001-1.035) Urine Ketones 2+ H (Negative)
[2024-01-15 10:25] LABS: Basophils # (A) 0.04 X 10*3/uL (0.00-0.10); Basophils % (A) 0.7 %; Eosinophils % (A) 1.7 %; HCT 38.6 % (39.6-50.0); HGB 12.7 g/dL (13.0-17.0); Lymphocytes # (A) 1.29 X 10*3/uL (0.90-5.00); MCH 28.6 pg (27.0-32.0); MCHC 32.9 g/dL (32.0-37.0); MCV 86.9 FL (80.0-97.0); Mean Platelet Volume 9.6 FL (9.5-12.2); Monocytes # (A) 0.68 X 10*3/uL (0.20-1.00); Monocytes % (A) 11.6 %; NRBC Per 100 WBC 0 X 10*3/uL (0.00-0.01); Neutrophils # (A) 3.74 X 10*3/uL (1.80-7.70); Neutrophils % (A) 63.7 %; Platelet Count 208 X 10*3/uL (140-440); RBC 4.44 X 10*6/uL (4.40-5.60); RDW 13.1 % (11.5-14.5); WBC 5.87 X 10*3/uL (4.50-10.00)
[2024-01-15 10:41] LABS: ALT 17 U/L (10-49); AST 24 U/L (14-35); Albumin 3.9 g/dL (3.8-4.9); Albumin/Globulin Ratio 1.86 Ratio (1.60-3.17); Alkaline Phosphatase 65 U/L (41-126); BUN/Creat Ratio 10.82 Ratio (12.00-20.00); Blood Urea Nitrogen 11.9 mg/dL (9.0-27.0); Calcium 8.6 mg/dL (8.7-10.3); Chloride 105 mmol/L (96-109); Globulin 2.1 g/dL (1.6-3.3); Glucose 104 mg/dL (70-110); Magnesium 2.1 mg/dL (1.5-2.4); Phosphorus 2.6 mg/dL (2.4-5.1); Potassium 3.8 mmol/L (3.5-5.5); Sodium 140 mmol/L (135-145); Total Bilirubin 0.4 mg/dL (0.3-1.2)
--- NOTE | 2024-01-16 06:07 | P.DS ---
Providers Date of admission: 01/14/24 06:26 Attending physician: Omar Gao Consults: 01/14/24 06:26 Consult Physician Routine Consulting Provider: Mecca Shi Consult Reason/Comments: lj Do you want consulting provider notified?: Yes 01/14/24 07:53 Consult Physician Routine Consulting Provider: Nancy Singer Consult Reason/Comments: Infectious Diarrhea Do you want consulting provider notified?: Yes Primary care physician: [facility] Course: HISTORY OF PRESENT ILLNESS: 78-year-old PATIENT with active medical history of hypertension, GERD, osteoarthritis, hypothyroidism, who had previous history of bariatric surgery with lap band and ended up removing the Lap-Band in the past. Has seen a mechanism inspector. Hospital on more regular basis and up-to-date on testing. 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 Thyroid TSH was 11.1 Free T4 of 1.01 normal albumin level, UA was negative consider further order and end up coming back to be negative. As he was observed in the ER and still pending study found to have significant bradycardia with pulse rate running in the 40s and early 50s only patient is still mildly symptomatic normally he runs around 80 bpm. Also finding with the blood pressure being well-controlled pulse remained well-controlled this point. CT of the abdomen eventually was done and showed wall thickening of the ascending colon and to a lesser extent of the descending colon and sigmoid wall could reflect multifocal infectious colitis additional possibilities such as an fluid inflammatory and ischemic colitis correlate clinically. The patient was admitted to the hospital continue aggressive hydration, will be evaluated by cardiology continue to watch heart rate on the heart monitor and initiate at this point at least Flagyl 500 mg IV every 8 consult gastroenterology and watch the diarrhea in the next 48 hours. 01/15/2024: The patient is feeling much better, no further diarrhea at this point, his pulse rate is about 50 beats per minutes without metoprolol and is feeling much better. Review CT the abdomen and pelvis from yesterday with finding more consistent with wall thickening in the ascending colon and to a lesser extent the descending colon and sigmoid reflect multifocal infectious colitis additional 2 possibility of include inflammatory and bowel ischemic colitis. Patient has been on metronidazole 500 mg 3 times a day IV which will be switched to oral and continue on 4 the next 7 days. He has an appointment to see gastroenterology and schedule colonoscopy already in the next few weeks which under any circumstances should not be done for at least the next 3 to 4 weeks pulse. The patient improved with the current management should continue with Cipro and based on the improvement decide further management. Patient wants to go home he will be taking natural fiber every day besides metronidazole and without metoprolol he has an appointment to see cardiology and probably do a longer-term heart monitor as an outpatient. REVIEW OF SYSTEMS: CONSTITUTIONAL: Mildly overweight no acute respiratory distress EYES: No icterus sclerae, no conjunctivitis. EARS, NOSE, MOUTH, THROAT, and FACE: No sore throat, lymphadenopathy, carotid bruits or deformity. RESPIRATORY: No SOB cough or wheezes. CARDIOVASCULAR: No chest pain or angina positive mild bradycardia no orthopnea. GASTROINTESTINAL: Slight abdominal discomfort with nausea diarrhea no constipation no active bleed with passing a lot of mucus with diarrhea. GENITOURINARY: Negative for Hematuria or UTI, no kidney stones. Mild decrease in urine output. INTEGUMENT/BREAST: Negative for any muscular injury with mild osteoarthritis.. HEMATOLOGIC/LYMPHATIC: Negative for bleed or purpura. MUSCULOSKELTAL: Negative for Myalgia or arthralgia. NEURLOGICAL: No LOC, Sz or syncope, blurred vision dizziness or abnormality.. BEHAVIORAL/PSYCH: Negative. ENDOCRINE: Negative. PHYSICAL EXAMINATION: General Appearance: Overweight alert, cooperative, no distress, appears stated age. Neck HEENT: Supple, no lymphadenopathy, no thyroid enlargement, no carotid bruits. Slight dry mucosa Lungs: Clear to auscultation without crackles or wheezes no rhonchi, no deformity. Chest Wall: Chest wall normal expansion with deep inspiration no tenderness and no deformity was found on exam, no costochondral pain or discomfort. Heart: Regular rate and rhythm, S1, S2 normal, positive mild bradycardia with pulse rate running in the 50s. No murmur, rub or gallop. Back: Symmetric, no curvature, ROM normal, no CVA tenderness. Abdomen: Soft, distended with positive bowel sound slight discomfort in the midepigastric area and lower abdominal region area no rebound or rigidity. Extremities: Extremities normal, atraumatic, no cyanosis or edema. Pulses: 2+ and symmetric. Skin: Skin color, texture, tugor normal, no rashes or lesions. Neurologic: Alert oriented x3 cranial nerves II through XII intact, positive generalized weakness normal balance and gait. ASSESSMENT AND PLAN: _Severe abdominal pain: Possibly active acute colitis can be infectious or inflammatory colitis not clear etiology might require further study and testing in the meanwhile we will cover infectious colitis for now. _Severe diarrhea severe C. difficile is excluded at this point the CAT scan is showing findings consistent with infectious colitis most likely _? Of colitis: Most likely infectious colitis will continue Flagyl but switch him to oral and continue on for the next 7 days follow-up as an outpatient. _Severe bradycardia: Without metoprolol pulse to run about 50 bpm and stable. _Acute kidney injury had resolved with hydration and doing well. _Hypothyroidism: Patient takes natural thyroid lobe PANEL INSTALLER thyroid to 70 mg Sunday and Sunday and 180 mg on Sunday and Sunday. Continue the same regimen medication for now. _Hypertension: Was on losartan 50 mg a day along with metoprolol succinate with his bradycardia metoprolol be held remain on terazosin 5 mg nightly as well we will titrate his losartan higher if needed. _BPH with no sign of obstruction continue terazosin watch for any retention. _Lower back pain and degenerative disc disease: Remains on Flexeril and Tylenol. _GI prophylaxis: Remain on omeprazole 20 mg a day. _DVT prophylaxis: Early mobilization and knee-high MUSHTAQ hose. CODE STATUS: Full code. Discharge planning: Patient be discharged home today. Hospital course: Patient was admitted to the hospital on 01/10/2024 with severe episode of lower abdominal pain along with diarrhea several times become with exhaustion causing the lightheadedness and dizziness with more symptomatic dehydration. Patient presented to the emergency department found to have slightly abnormal kidney function test with GFR 56 normal thyroid test at that time found to be in severe bradycardia as well. With the severity of abdominal pain CAT scan of the abdomen was performed and showed thickening of the colon area to a lesser extent the left colon along with sigmoid consistent with most likely infectious colitis versus ischemic or inflammatory colitis. No bleeding was found at this point patient is not having any drop in hemoglobin. Was started on Flagyl and have improved significantly. Patient also found to have severe bradycardia with pulse rate running in the 40s and low 50s he is on metoprolol succinate 25 mg daily was taking off completely and his pulse become much better. The following day on the patient is feeling much better no further diarrhea and his pulse rate was running in the 60s stable and doing well I agreed to discharge patient home to follow-up as an outpatient in the next few days the patient will see his mechanism inspector and probably decide on longer-term heart monitor as an outpatient. Patient is stable to be discharged home today. Time spent on discharging patient was over 32 minutes. Patient Condition at Discharge: Fair Plan - Discharge Summary New Discharge Prescriptions: New metroNIDAZOLE 250 mg PO TID #21 tablet polyethylene glycoL 3350 [Miralax] 17 gm PO AC-LUNCH #527 gm Continue Losartan Potassium 50 mg PO HS Thyroid,Pork [Doctor Chiropractic Thyroid] 180 mg PO MOWEFR Omeprazole 20 mg PO DAILY Terazosin HCl 5 mg PO HS Cholecalciferol [Vitamin D3 (125 Mcg = 5000 Iu)] 125 mcg PO DAILY Thyroid,Pork [Doctor Chiropractic Thyroid] 270 mg PO SUTUTHSA Cyclobenzaprine [Flexeril] 10 mg PO BID PRN PRN Reason: Muscle Spasm Multivitamins, Thera [Multivitamin (formulary)] 1 tab PO DAILY Aspirin EC [Ecotrin Low Dose] 81 mg PO DAILY hydroCHLOROthiazide [Hydrodiuril] 25 mg PO DAILY Discontinued Metoprolol Succinate (ER) [Toprol Xl] 25 mg PO DAILY Discharge Medication List Cholecalciferol [Vitamin D3 (125 Mcg = 5000 Iu)] 125 mcg PO DAILY 09/22/21 [History] Losartan Potassium 50 mg PO HS 09/22/21 [History] Terazosin HCl 5 mg PO HS 09/22/21 [History] Aspirin EC [Ecotrin Low Dose] 81 mg PO DAILY 01/14/24 [History] Cyclobenzaprine [Flexeril] 10 mg PO BID PRN 01/14/24 [History] Multivitamins, Thera [Multivitamin (formulary)] 1 tab PO DAILY 01/14/24 [History] Omeprazole 20 mg PO DAILY 01/14/24 [History] Thyroid,Pork [Doctor Chiropractic Thyroid] 180 mg PO MOWEFR 01/14/24 [History] Thyroid,Pork [Doctor Chiropractic Thyroid] 270 mg PO SUTUTHSA 01/14/24 [History] hydroCHLOROthiazide [Hydrodiuril] 25 mg PO DAILY 01/14/24 [History] metroNIDAZOLE 250 mg PO TID #21 tablet 01/15/24 [Rx] polyethylene glycoL 3350 [Miralax] 17 gm PO AC-LUNCH #527 gm 01/15/24 [Rx] Follow up Appointment(s)/Referral(s): Omar Gao MD [Primary Care Provider] - 1-2 days Nancy Singer MD [STAFF PHYSICIAN] - 1 Week Discharge Disposition: HOME SELF-CARE
--- NOTE | 2024-01-17 07:21 | CDI ---
Documentation Clarification Form Date: 01/17/24 From: Vanessa Tracy Admit Date: 01/14/2024 06:26:00 AM Patient Name: Denver Batres Visit Number: [id number] Discharge Date: 01/15/2024 09:53:00 AM ATTENTION: The Clinical Documentation Specialists (CDI) and [facility] Coding Staff appreciate your assistance in clarifying documentation. Please respond to the clarification below the line at the bottom and electronically sign. The CDI & [facility] Coding staff will review the response and follow-up if needed. Please note: Queries are made part of the Legal Health Record. If you have any questions, please contact the author of this message via ITS. Dr. Omar Gao, LILIBETH is documented in the H&P which may lack sufficient clinical evidence/support in the medical record. Additional clarification is requested. Patient history/risk factors: HTN W CKD II, hypothyroidism, bifascicular block, bradycardia, DDD of L spine, [place], infectious diarrhea Clinical Indicators: Dehydratedcurrently that his workup shows creatinine 4.22 GFR 56. BUN/Cr/GFR [01/13-01/14] BUN: 22/11.9 Cr: 1.22/1.1 GFR: 56 Treatment: Aggressive IV hydration After work up and study, please which diagnosis is most appropriate? [ ] Acute Kidney Injury ruled out [ ] Acute Kidney Injury is a valid diagnosis as evidenced by the following: [ XX ] Acute renal insufficiency [ ] Unable to determine [ ] Other, please specify Reference: [facility] LILIBETH Criteria An increase in serum creatinine by greater than or equal to 0.3 mg/dL within 48 hours; An increase in serum creatinine by greater than or equal to 1.5 times baseline, which is known or presumed to have occurred within the prior 7 days; A urine volume less than 0.5 ml/kg/h for 6 hours. When the baseline is unknown the lowest creatinine during admission assumed to be baseline MTDD
== END 2024-01-15 09:53 | disposition home or self-care (01) | DRG 392 ==
LOC: EC 05:23 → 4SSUR 06:26
PROVIDERS: ADMIT Internal Medicine Geriatric Medicine; ATTEND Internal Medicine Geriatric Medicine
DX: A09 Infectious gastroenteritis and colitis, unspecified (principal); I45.2 Bifascicular block; I12.9 Hypertensive chronic kidney disease with stage 1 through stage 4 chronic kidney disease, or unspecified chronic kidney disease; E03.9 Hypothyroidism, unspecified; N18.2 Chronic kidney disease, stage 2 (mild); E86.0 Dehydration; N40.0 Benign prostatic hyperplasia without lower urinary tract symptoms; R00.1 Bradycardia, unspecified; K21.9 Gastro-esophageal reflux disease without esophagitis; N28.9 Disorder of kidney and ureter, unspecified; M51.36 Other intervertebral disc degeneration, lumbar region; H91.90 Unspecified hearing loss, unspecified ear; M19.90 Unspecified osteoarthritis, unspecified site; Z79.82 Long term (current) use of aspirin; Z79.890 Hormone replacement therapy; Z79.899 Other long term (current) drug therapy; Z87.891 Personal history of nicotine dependence; Z98.84 Bariatric surgery status
CPT/HCPCS: 36415; 71046; 74178; 80053; 81003; 83605; 83735; 84100; 84439; 84443; 84484; 85025; 85610; 85730; 87324; 93005; 94760; 96361; 96365; 96366; 99291

== ENCOUNTER 2024-02-27 10:30 | Day surgery (SDC) | payer MEDICARE, OTHER ==
[~2024-02-27 10:30] MED LIST: LACTATED RINGERS 1,000 ML BAG ONE
[2024-02-27] MEDS ORDERED: PROPOFOL 10 MG/ML 20 ML VIAL IV ONE (10:36)
--- NOTE | 2024-03-21 07:27 | P.PCN ---
Date of Procedure: 02/27/24 Procedure(s) Performed: This is an addendum to the procedure that was performed on 02/27/2024. Procedure performed colonoscopy with snare polypectomy preoperative diagnosis :History of colon polyps Procedure: The Olympus colonoscopy was inserted the rectum gradually advanced to the cecum. Careful examination was performed as the scope was gradually being withdrawn. In the cecum there was a 5 mm polyp that was removed by cold snare polypectomy. Scattered sigmoid diverticulosis seen.
== END 2024-02-27 11:45 | disposition home or self-care (01) ==
LOC: ORWHC2ENDO 10:30
PROVIDERS: ATTEND Internal Medicine Gastroenterology
DX: Z12.11 Encounter for screening for malignant neoplasm of colon (principal); I10 Essential (primary) hypertension; Z79.899 Other long term (current) drug therapy; Z86.010 Personal history of colon polyps
CPT/HCPCS: 45385; 88305